=== PATIENT | male | born 1950 | race Caucasian/White ===

== ENCOUNTER 2016-06-22 09:37 | Emergency (ER) | payer MEDICARE, OTHER ==
[~2016-06-22] VITALS: Ht 175.3 cm; Wt 93.0 kg
[~2016-06-22 09:37] MED LIST: AMLO5TAB2 PO; ASPI81TA2 PO; ATOR40TA PO; CARV6.252 PO; LISI-603 PO
[2016-06-22] MEDS ORDERED: KETOROLAC TROMETHAMINE INJ 30 MG/ML VIAL ONE (10:24)
[2016-06-22] MEDS ORDERED: ACETAMINOPHEN 325 MG TABLET ONE (10:24)
[2016-06-22] MEDS ORDERED: KETOROLAC TROMETHAMINE INJ 30 MG/ML VIAL IM ONE (10:30)
[2016-06-22] MEDS ORDERED: ACETAMINOPHEN 325 MG TABLET PO ONE (10:30)
[2016-06-22 11:29] VITALS: BP 124/80
== END 2016-06-22 11:32 | disposition home or self-care (01) ==
LOC: ER 09:40
DX: S20.211A Contusion of right front wall of thorax, initial encounter (principal); I10 Essential (primary) hypertension; M25.532 Pain in left wrist; R07.89 Other chest pain; G89.29 Other chronic pain; Z79.82 Long term (current) use of aspirin; Z85.828 Personal history of other malignant neoplasm of skin; W01.0XXA Fall on same level from slipping, tripping and stumbling without subsequent striking against object, initial encounter; Y92.89 Other specified places as the place of occurrence of the external cause; Y93.89 Activity, other specified; Y99.8 Other external cause status
CPT/HCPCS: 71020; 72040; 96372; 99284; A4606; J1885; Z7610

== ENCOUNTER 2016-11-15 10:10 | Emergency (ER) | payer BC, MEDICARE ==
[~2016-11-15] VITALS: Ht 175.3 cm; Wt 90.7 kg
[2016-11-15 10:19] VITALS: BP 151/69
--- NOTE | 2016-11-15 11:51 | NUR ---
PT TAKEN TO CT VIA WC
== END 2016-11-15 12:41 | disposition home or self-care (01) ==
LOC: ER 10:12
DX: S16.1XXA Strain of muscle, fascia and tendon at neck level, initial encounter (principal); I10 Essential (primary) hypertension; E78.5 Hyperlipidemia, unspecified; Z79.82 Long term (current) use of aspirin; V49.40XA Driver injured in collision with unspecified motor vehicles in traffic accident, initial encounter; Y93.89 Activity, other specified; Y92.413 State road as the place of occurrence of the external cause; Y99.8 Other external cause status
CPT/HCPCS: 70450; 71010; 72040; 93005; 99284; A4606; Z7610

== ENCOUNTER 2017-04-30 05:02 | Emergency (ER) | payer MEDICARE, BC ==
[~2017-04-30] VITALS: Ht 175.3 cm; Wt 68.0 kg
--- NOTE | 2017-04-30 05:15 | NUR ---
PT BIB SELF AMBULATORY TO ER BED 6, PT C/O GFL 6 HOURS AGO; PAIN IN THE RIGHT LOWER ARM. (-) LOC. PT VSS/RESP EVEN UNLABORED/NAD NOTED/DENIES N-V/SKIN WARM AND DRY/AOX4. NO BRUSING NOTED TO RIGHT ARM, MILD EDEMA NOTED.
--- NOTE | 2017-04-30 05:16 | NUR ---
XRAY AT BEDSIDE
[2017-04-30] MEDS ORDERED: IBUPROFEN 400 MG TABLET PO ONE (05:30)
[2017-04-30] MEDS ORDERED: IBUPROFEN 400 MG TABLET ONE (05:33)
--- NOTE | 2017-04-30 05:36 | NUR ---
PT STATES HE TOOK IBUPOFEN 1000MG PO AT 0330. MADE AWARE.
[2017-04-30 06:46] VITALS: BP 124/76
== END 2017-04-30 06:47 | disposition home or self-care (01) ==
LOC: ER 05:03
DX: M25.531 Pain in right wrist (principal); E78.5 Hyperlipidemia, unspecified; I10 Essential (primary) hypertension; Z79.82 Long term (current) use of aspirin; Z95.818 Presence of other cardiac implants and grafts; W18.30XA Fall on same level, unspecified, initial encounter; Y93.89 Activity, other specified; Y92.89 Other specified places as the place of occurrence of the external cause; Y99.8 Other external cause status
CPT/HCPCS: 29125; 73110; 99284; A4606; Z7610

== ENCOUNTER 2020-11-06 09:29 | Outpatient (CLI) | payer MEDICARE, BC ==
[~2020-11-06 09:29] MED LIST changes: +AMLO-212 PO; -AMLO5TAB2 PO; +ASPI-1169 PO; -ASPI81TA2 PO; -LISI-603 PO; +LISI20TA30 PO
[2020-11-06] MEDS ORDERED: LIDOCAINE 2% JEL 5 ML TUBE ONE (09:56)
== END 2020-11-06 23:59 | disposition home or self-care (01) ==
LOC: WOU 09:29
PROVIDERS: ATTEND Podiatrist Foot & Ankle Surgery
DX: T81.31XA Disruption of external operation (surgical) wound, not elsewhere classified, initial encounter (principal); Z85.828 Personal history of other malignant neoplasm of skin; I10 Essential (primary) hypertension; Z87.891 Personal history of nicotine dependence; Z79.82 Long term (current) use of aspirin
CPT/HCPCS: 11042; 87070; 87075; A6209

== ENCOUNTER 2020-11-10 08:15 | Outpatient (CLI) | payer MEDICARE, BC ==
[2020-11-10 10:06] LABS: BASOPHILS % (AUTO) 0.6 % (0.0-2.0); EOSINOPHILS % (AUTO) 2.4 % (0.0-6.0); HEMATOCRIT 37 % (39-51); HEMOGLOBIN 12.6 g/dL (13.5-17.5); LYMPHOCYTES # (AUTO) 1.5 /CMM (0.8-4.8); LYMPHOCYTES % (AUTO) 24.4 % (20.0-44.0); MEAN CORPUSCULAR HGB CONC 34 g/dl (31.0-36.0); MEAN CORPUSCULAR VOLUME 105 fL (80-96); MONOCYTES # (AUTO) 0.7 /CMM (0.1-1.30); MONOCYTES % (AUTO) 10.8 % (2.0-12.0); NEUTROPHILS # (AUTO) 3.9 /CMM (1.8-8.9); NEUTROPHILS % (AUTO) 61.8 % (43.0-81.0); PLATELET COUNT (AUTO) 172 /CMM (150-450); RED BLOOD CELL COUNT(AUTO) 3.49 MIL/uL (4.5-6.0); WHITE BLOOD COUNT (AUTO) 6.3 K/uL (4.3-11.0)
[2020-11-10 10:48] LABS: CALCIUM, SERUM 9.1 mg/dL (8.5-10.1); POTASSIUM 5.1 mmol/L (3.5-5.1)
== END 2020-11-10 23:59 | disposition home or self-care (01) ==
LOC: WOU 08:15
PROVIDERS: ATTEND Podiatrist Foot & Ankle Surgery
DX: T81.31XA Disruption of external operation (surgical) wound, not elsewhere classified, initial encounter (principal); Z85.828 Personal history of other malignant neoplasm of skin; R05 Cough; Z71.89 Other specified counseling; Z79.82 Long term (current) use of aspirin
CPT/HCPCS: 11042; 36415; 71046; 80048; 85025; 85730; 93005; A6207; A6209

== ENCOUNTER 2020-11-10 09:00 | Outpatient (CLI) | payer MEDICARE, BC | END 2020-11-10 23:59 | disposition home or self-care (01) | LOC: LAB 09:00 | PROVIDERS: ATTEND Podiatrist Foot & Ankle Surgery | DX: Z01.812 Encounter for preprocedural laboratory examination (principal); Z20.822 Contact with and (suspected) exposure to COVID-19; L97.312 Non-pressure chronic ulcer of right ankle with fat layer exposed | CPT/HCPCS: C9803; U0003 ==

== ENCOUNTER → 2020-11-13 | Day surgery (SDC) | payer MEDICARE, BC ==
[~2020-11-13] MED LIST changes: +ANESTHESIA TRAY IN PYXIS 1 EA TRAY MC ONE; +BACITRACIN 50000 UNITS/VIAL ONE; +BUPIVACAINE 0.5 % PF 150 MG/30 ML VIAL ONE; +FENTANYL PF 100MCG/2ML AMPUL ONE; +LIDOCAINE HCL/MPF 1% 30 ML VIAL IJ ONE; +MINERAL OIL 10 ML VIAL MC ONE; +VANCOMYCIN 1 GM VIAL ONE
--- NOTE | 2020-11-13 07:00 | NUR ---
MS RN NOTES PATIENT READY FOR DAY SURGERY AND TAKEN TO OR
--- NOTE | 2020-11-13 12:35 | NUR ---
MS DIRECTOR OF UNDERGRADUATE ADMISSIONS NOTES PATIENT DISCHARGED HOME IN MEDICALLY STABLE CONDITION PER MD ORDER. PATIENT A/O X4 AND ABLE TO MAKE NEEDS KNOWN. ALL DISCHARGE DOCUMENTATION READY AND TEACHING PROVIDED; PATIENT VERBALIZED UNDERSTANDING. BELONGINGS CHECKED AND FORM SIGNED. MEDICATION PRESCRIPTION READY AND PICKED UP BY PATIENTS . PATIENT LEFT THE UNIT VIA WHEELCHAIR ACCOMPANIED BY THE STAVE CUTTING SUPERVISOR AND HIS AT 1215
== END | disposition home or self-care (01) ==
LOC: DS 06:06
PROVIDERS: ATTEND Podiatrist Foot & Ankle Surgery
DX: M25.571 Pain in right ankle and joints of right foot (principal); T81.30XA Disruption of wound, unspecified, initial encounter; T81.31XA Disruption of external operation (surgical) wound, not elsewhere classified, initial encounter; T81.89XA Other complications of procedures, not elsewhere classified, initial encounter
CPT/HCPCS: 15004; 15120; 87070 ×2; A6209; J0690; J1100; J2405; J2704; J3010; J3490 ×3; 88305-TC; J3370

== ENCOUNTER 2020-11-17 09:00 | Outpatient (CLI) | payer MEDICARE, BC ==
[~2020-11-17 09:00] MED LIST changes: -ANESTHESIA TRAY IN PYXIS 1 EA TRAY MC ONE; -BACITRACIN 50000 UNITS/VIAL ONE; -BUPIVACAINE 0.5 % PF 150 MG/30 ML VIAL ONE; -FENTANYL PF 100MCG/2ML AMPUL ONE; -LIDOCAINE HCL/MPF 1% 30 ML VIAL IJ ONE; -MINERAL OIL 10 ML VIAL MC ONE; -VANCOMYCIN 1 GM VIAL ONE
== END 2020-11-17 23:59 | disposition home health service (06) ==
LOC: WOU 09:00
PROVIDERS: ATTEND Podiatrist Foot & Ankle Surgery
DX: Z48.817 Encounter for surgical aftercare following surgery on the skin and subcutaneous tissue (principal); T81.89XA Other complications of procedures, not elsewhere classified, initial encounter; Z94.5 Skin transplant status; Z85.828 Personal history of other malignant neoplasm of skin; Z79.82 Long term (current) use of aspirin
CPT/HCPCS: 29581; A6207; G0463

== ENCOUNTER → 2020-11-20 | Outpatient (CLI) | payer MEDICARE, BC | END | disposition home health service (06) | LOC: WOU 09:00 | PROVIDERS: ATTEND Podiatrist Foot & Ankle Surgery | DX: Z48.817 Encounter for surgical aftercare following surgery on the skin and subcutaneous tissue (principal); Z94.5 Skin transplant status; R60.0 Localized edema; I10 Essential (primary) hypertension; Z85.828 Personal history of other malignant neoplasm of skin; Z79.82 Long term (current) use of aspirin | CPT/HCPCS: 29581; A6207 ==

== ENCOUNTER 2020-11-27 09:15 | Outpatient (CLI) | payer MEDICARE, BC ==
[2020-11-27] MEDS ORDERED: UREA 10% -AHA 4% CREAM 57 GM TUBE ONE (10:02)
== END 2020-11-27 23:59 | disposition home health service (06) ==
LOC: WOU 09:15
PROVIDERS: ATTEND Podiatrist Foot & Ankle Surgery
DX: Z48.817 Encounter for surgical aftercare following surgery on the skin and subcutaneous tissue (principal); Z94.5 Skin transplant status; S81.801D Unspecified open wound, right lower leg, subsequent encounter; X58.XXXD Exposure to other specified factors, subsequent encounter; R60.0 Localized edema; I10 Essential (primary) hypertension; Z85.828 Personal history of other malignant neoplasm of skin; Z79.82 Long term (current) use of aspirin
CPT/HCPCS: A6207; G0463

== ENCOUNTER 2020-12-04 09:00 | Outpatient (CLI) | payer MEDICARE, BC | END 2020-12-04 23:59 | disposition home or self-care (01) | LOC: WOU 09:00 | PROVIDERS: ATTEND Podiatrist Foot & Ankle Surgery | DX: Z48.817 Encounter for surgical aftercare following surgery on the skin and subcutaneous tissue (principal); Z94.5 Skin transplant status; R60.0 Localized edema; Z85.828 Personal history of other malignant neoplasm of skin; Z79.82 Long term (current) use of aspirin | CPT/HCPCS: 29581; A6207 ==

== ENCOUNTER 2020-12-11 08:30 | Outpatient (CLI) | payer MEDICARE, BC ==
[2020-12-11] MEDS ORDERED: UREA 10% -AHA 4% CREAM 57 GM TUBE ONE (08:35)
== END 2020-12-11 23:59 | disposition home health service (06) ==
LOC: WOU 08:30
PROVIDERS: ATTEND Podiatrist Foot & Ankle Surgery
DX: R60.0 Localized edema (principal); Z85.828 Personal history of other malignant neoplasm of skin
CPT/HCPCS: G0463

== ENCOUNTER 2020-12-29 08:20 | Outpatient (CLI) | payer MEDICARE, BC | END 2020-12-29 23:59 | disposition home or self-care (01) | LOC: WOU 08:20 | PROVIDERS: ATTEND Podiatrist Foot & Ankle Surgery | DX: S81.801D Unspecified open wound, right lower leg, subsequent encounter (principal); X58.XXXD Exposure to other specified factors, subsequent encounter; R60.0 Localized edema; Z85.828 Personal history of other malignant neoplasm of skin; Z79.82 Long term (current) use of aspirin | CPT/HCPCS: G0463 ==

== ENCOUNTER 2021-01-22 08:10 | Outpatient (CLI) | payer MEDICARE, BC | END 2021-01-22 23:59 | disposition home or self-care (01) | LOC: WOU 08:10 | PROVIDERS: ATTEND Podiatrist Foot & Ankle Surgery | DX: M21.621 Bunionette of right foot (principal); R60.0 Localized edema; I10 Essential (primary) hypertension; Z85.828 Personal history of other malignant neoplasm of skin; Z79.82 Long term (current) use of aspirin | CPT/HCPCS: G0463 ==

== ENCOUNTER 2022-04-12 09:55 | Emergency (ER) | payer MEDICARE, BC ==
[~2022-04-12] VITALS: Ht 175.3 cm; Wt 83.9 kg
--- NOTE | 2022-04-12 10:03 | NUR ---
Received pt 72 yrs male walking in from home c/o pain on lt shouderno diformity tripe and fall yesterday pain on BOTH knee and lt
--- NOTE | 2022-04-12 10:30 | NUR ---
SEEN BY DR. SOTELO
--- NOTE | 2022-04-12 10:40 | NUR ---
X RAY DONE AT BED side
[2022-04-12] MEDS ORDERED: NAPR-1192 PO (11:51)
[2022-04-12 11:58] VITALS: BP 146/78
--- NOTE | 2022-04-12 11:58 | NUR ---
Patient discharged to home in stable condition. Written and verbal after care instructions given. Patient verbalizes understanding of instruction.
== END 2022-04-12 12:02 | disposition home or self-care (01) ==
LOC: ER 09:57
DX: M25.512 Pain in left shoulder (principal); M25.531 Pain in right wrist; M25.532 Pain in left wrist; I10 Essential (primary) hypertension; E78.5 Hyperlipidemia, unspecified; Z60.2 Problems related to living alone; Z79.899 Other long term (current) drug therapy
CPT/HCPCS: 73030-TC; 73110

== ENCOUNTER 2022-05-23 06:21 | Inpatient (IN) | payer MEDICARE, BC ==
[~2022-05-23] VITALS: Ht 175.3 cm; Wt 85.7 kg
[~2022-05-23 06:21] MED LIST changes: +NAPR-1192 PO
--- NOTE | 2022-05-23 06:25 | NUR ---
TO ER BED 3. [id number] FROM HOME C/O WEAKNESS AND GLF. DENIES HEAD TRAUMA. -KO. PT IS ALERT AND ORIENTED. RR EVEN AND NONLABORED. CONNECTED TO POX AND HEART MONITOR. AWAITING MD HWANG
--- NOTE | 2022-05-23 06:45 | NUR ---
PT UNABLE TO PROVIDE URINE AT THIS TIME , URINAL PROVIDED AT BEDSIDE
--- NOTE | 2022-05-23 07:15 | NUR ---
RECEIVED PT FROM NELIA HOLLIS PT AWAKE AND FALLOW COMMAND GENRALIZED WEEKNESS
--- NOTE | 2022-05-23 07:21 | NUR ---
LAB AT BEDSIDE
[2022-05-23 07:45] LABS: ACETAMINOPHEN < 10 ug/ml (10-30); ALANINE AMINOTRANSFERASE 27 U/L (12-78); ALCOHOL, BLOOD < 3 mg/dL (0-0); ALKALINE PHOSPHATASE 72 U/L (46-116); ASPARTATE AMINOTRANSFERASE 23 U/L (15-37); BILIRUBIN,DIRECT 0.1 mg/dL (0.0-0.2); BILIRUBIN,TOTAL 0.2 mg/dL (0.2-1.0); CALCIUM, SERUM 9.4 mg/dL (8.5-10.1); CARBON DIOXIDE 26 mmol/L (21-32); CHLORIDE 102 mmol/L (98-107); CREATININE 1.1 mg/dL (0.6-1.3); GLUCOSE 103 mg/dL (74-106); POTASSIUM 4.1 mmol/L (3.5-5.1); SODIUM SERUM 137 mmol/L (136-145); TOTAL PROTEIN, SERUM 8.2 g/dL (6.4-8.2); UREA NITROGEN, BLOOD 16 mg/dL (7-18)
[2022-05-23 07:55] LABS: HEMOGLOBIN 11.1 g/dL (13.5-17.5); MONOCYTES # (AUTO) 0.5 K/uL (0.1-1.30); RED BLOOD CELL COUNT(AUTO) 3.74 MIL/uL (4.5-6.0)
--- NOTE | 2022-05-23 07:55 | NUR ---
UA SENT TO LAB
[2022-05-23 08:00] LABS: BASOPHILS % (AUTO) 0.8 % (0.0-2.0); EOSINOPHILS % (AUTO) 0.8 % (0.0-6.0); HEMATOCRIT 34 % (39-51); LYMPHOCYTES # (AUTO) 1.1 K/uL (0.8-4.8); LYMPHOCYTES % (AUTO) 26.4 % (20.0-44.0); MEAN CORPUSCULAR HGB CONC 33 g/dl (31.0-36.0); MEAN CORPUSCULAR VOLUME 91 fL (80-96); MONOCYTES % (AUTO) 10.7 % (2.0-12.0); NEUTROPHILS # (AUTO) 2.6 K/uL (1.8-8.9); NEUTROPHILS % (AUTO) 61.3 % (43.0-81.0); PLATELET COUNT (AUTO) 115 K/uL (150-450); WHITE BLOOD COUNT (AUTO) 4.3 K/uL (4.3-11.0)
[2022-05-23 09:21] LABS: BILIRUBIN,URINE NEGATIVE (NEGATIVE); COLOR,URINE YELLOW (YELLOW); LEUKOCYTE ESTERASE ,URINE NEGATIVE (NEGATIVE); NITRITE, URINE NEGATIVE (NEGATIVE); PROTEIN,URINE NEGATIVE (NEGATIVE); UGLUCOSE NEGATIVE (NEGATIVE); UROBILINOGEN,URINE 0.2 EU/dL (0.2)
--- NOTE | 2022-05-23 10:12 | NUR ---
COVID SWAB COLLECTED AND SENT TO LAB
[2022-05-23] MEDS ORDERED: TIZA-180 PO (10:30)
[2022-05-23] MEDS ORDERED: LORA-259 PO (10:30)
[2022-05-23] MEDS ORDERED: EZET10TA32 PO (10:30)
[2022-05-23] MEDS ORDERED: HYDR-3980 PO (10:31)
[2022-05-23] MEDS ORDERED: MAGNESIUM HYDROXIDE 30 ML UDC PO PRN (11:00)
[2022-05-23] MEDS ORDERED: ONDANSETRON HCL/PF 4 MG/2 ML VIAL IVP PRN (11:00)
[2022-05-23] MEDS ORDERED: IV NS 0.9% 1,000 ML IV PRN (11:00)
[2022-05-23] MEDS ORDERED: MAG HYDROX/AL HYDROX/SIMETH 30 ML UDC PO PRN (11:00)
[2022-05-23] MEDS ORDERED: Z GUARD REMEDY 4 OZ OINT TP PRN (11:00)
[2022-05-23] MEDS ORDERED: ACETAMINOPHEN 325 MG TABLET PO PRN (11:00)
[2022-05-23] MEDS: ENOXAPARIN SODIUM 40 MG/0.4 ML DISP.SYRIN SQ SCH (11:30)
[2022-05-23] MEDS ORDERED: ACETAMINOPHEN 325 MG TABLET ONE (12:39)
--- NOTE | 2022-05-23 13:00 | NUR ---
IV LINE ESTABLISHED ON LAC #20
--- NOTE | 2022-05-23 15:57 | NUR ---
INFORMED DR. GOMEZ THAT PT COMPLAINED OF BODY PAIN. PER DR GOMEZ OK FOR PT TO CONTINUE NORCO 10-325 MEDICATION INDICATED. ORDER READBACK AND VERIFIED W/ .
[2022-05-23] MEDS ORDERED: HYDROCODONE/APAP 10/325MG TABLET ONE (15:59)
[2022-05-23] MEDS: HYDROCODONE/APAP 10/325MG TABLET PO SCH (16:00)
--- NOTE | 2022-05-23 19:41 | NUR ---
ROOM 309-2
--- NOTE | 2022-05-23 20:24 | NUR ---
REPORT GIVENTO TELMA JEFF
--- NOTE | 2022-05-23 20:30 | NUR ---
BEAUTY ADVISORRIGHT OF WAY SUPERVISOR NOTE RECEIVED REPORT FROM ER NURSE EMANUEL. PT ADMITTED TO ROOM 309-2 WITH DIAGNOSIS OF FALLS. PT A/O X 3-4, ABLE TO MAKE NEEDS KNOWN. PT ABLE TO AMBULATE TO BATHROOM WITH ASSIST. NO C/O PAIN AT THIS TIME. NO SOB, OR RESPIRATORY DISTRESS. INSTRUCTED PT ON HOW TO USE CALL LIGHT. PT HAS IV ACCESS TO LEFT AC, AND IV INTACT, AND PATENT. SKIN ASSESSMENT COMPLETED. PT'S SKIN IS INTACT EXCEPT FOR DISCOLORATIONS TO BILATERAL ARMS, AND SCAB TO RIGHT LOWER EXTREMITY. WILL CONTINUE TO MONITOR ACCORDINGLY.
--- NOTE | 2022-05-23 20:40 | NUR ---
PT TRANSFERRED UNDER ACLS
[2022-05-23 22:00] VITALS: BP 135/89
[2022-05-23] MEDS ORDERED: ATORVASTATIN 40 MG TABLET PO SCH (22:00)
[2022-05-23] MEDS: CARVEDILOL 6.25 MG TABLET PO SCH (23:02)
[2022-05-24] VITALS: BP 165/85
[2022-05-24] MEDS ORDERED: TEMAZEPAM 7.5 MG CAPSULE PO PRN (02:00)
[2022-05-24 04:00] VITALS: BP 148/65
[2022-05-24] MEDS: HYDROCODONE/APAP 10/325MG TABLET PO SCH (05:27)
[2022-05-24 06:34] LABS: BASOPHILS % (AUTO) 0.3 % (0.0-2.0); EOSINOPHILS % (AUTO) 0.6 % (0.0-6.0); HEMATOCRIT 35 % (39-51); HEMOGLOBIN 11.3 g/dL (13.5-17.5); LYMPHOCYTES # (AUTO) 1.2 K/uL (0.8-4.8); LYMPHOCYTES % (AUTO) 21.4 % (20.0-44.0); MEAN CORPUSCULAR HGB CONC 33 g/dl (31.0-36.0); MEAN CORPUSCULAR VOLUME 90 fL (80-96); MONOCYTES # (AUTO) 0.7 K/uL (0.1-1.30); MONOCYTES % (AUTO) 11.8 % (2.0-12.0); NEUTROPHILS # (AUTO) 3.7 K/uL (1.8-8.9); NEUTROPHILS % (AUTO) 65.9 % (43.0-81.0); PLATELET COUNT (AUTO) 100 K/uL (150-450); RED BLOOD CELL COUNT(AUTO) 3.82 MIL/uL (4.5-6.0); WHITE BLOOD COUNT (AUTO) 5.6 K/uL (4.3-11.0)
[2022-05-24 07:09] LABS: CALCIUM, SERUM 9.4 mg/dL (8.5-10.1); CARBON DIOXIDE 25 mmol/L (21-32); CHLORIDE 102 mmol/L (98-107); CREATININE 1.1 mg/dL (0.6-1.3); GLUCOSE 110 mg/dL (74-106); PHOSPHORUS 3.4 mg/dL (2.5-4.9); POTASSIUM 3.7 mmol/L (3.5-5.1); SODIUM SERUM 138 mmol/L (136-145); UREA NITROGEN, BLOOD 14 mg/dL (7-18)
--- NOTE | 2022-05-24 07:10 | NUR ---
FOUNDRY PROCESS ENGINEER CLOSING NOTE LEFT PATIENT RESTING IN BED, AWAKE. PT A/O X3, ABLE TO MAKE NEEDS KNOWN. PT STABLE ON ROOM AIR. NO SOB OR RESPIRATORY DISTRESS NOTED. BREATHING EVEN AND UNLABORED. NO C/O PAIN AT THIS TIME. IV ACCESS TO LEFT FA 20G, INTACT AND PATENT. PT C/O GENERALIZED PAIN, AND INSOMNIA DURING SHIFT. PAIN MED GIVEN TO PT. MD CALLED, AND NEW ORDER RECEIVED FOR RESTORIL PRN. ORDER CARRIED OUT. SAFETY PRECAUTIONS IN PLACE. BED IN LOWEST LOCKED POSITION, HOB ELEVATED, SIDE RAILS UP X2, AND CALL LIGHT AND TABLE WITHIN REACH. WILL ENDORSE TO AM SHIFT NURSE FOR DONNIE.
--- NOTE | 2022-05-24 07:25 | NUR ---
SENIOR RESEARCH CONSULTANT OPENING NOTE RECEIVED PT AWAKE AND RESTING IN BED. PT A/O X3-4, ABLE TO MAKE NEEDS KNOWN. ON ROOM AIR, TOLERATING WELL. NO SOB NOTED. NOT IN ANY SIGN OF RESPIRATORY DISTRESS. ON TELE ARMED SECURITY GUARD WITH CURRENT READING OF SINUS RHYTHM WITH BBB, HR 85. NO C/O CARDIAC DISTRESS VOICED OUT AT THIS TIME. IV ACCESS IN LAC G#20, INTACT AND PATENT. PT REFUSED IV FLUIDS AT THIS TIME. AWARE. SAFETY MEASURES IN PLACE: BED IN LOWEST AND LOCKED POSITION, SIDE RAILS UPX2, BED ALARM ON, AND CALL LIGHT WITHIN REACH. WILL CONTINUE TO MONITOR PT.
[2022-05-24 08:00] VITALS: BP 153/87
[2022-05-24] MEDS: CARVEDILOL 6.25 MG TABLET PO SCH (08:56)
[2022-05-24] MEDS ORDERED: ASPIRIN 81 MG TAB.CHEW PO SCH (09:00)
[2022-05-24] MEDS ORDERED: EZETIMIBE 10 MG TABLET PO SCH (09:00)
[2022-05-24] MEDS: ENOXAPARIN SODIUM 40 MG/0.4 ML DISP.SYRIN SQ SCH (11:00)
--- NOTE | 2022-05-24 11:55 | NUR ---
RN NOTE PT REFUSED LOVENOX MEDICATION SCHEDULED AT 1100. EXPLAINED RISK AND BENEFITS X3, STILL REFUSED.
[2022-05-24 12:00] VITALS: BP 156/87
--- NOTE | 2022-05-24 13:55 | NUR ---
TRACER LATHE SET UP OPERATOR NOTE PT DISCHARGED TO HOME IN STABLE CONDITION. PT A/O X3-4, ABLE TO MAKE NEEDS KNOWN. ON ROOM AIR, TOLERATING WELL WITH SPO2 AT 97%. NO SOB NOTED. NOT IN ANY SIGN OF RESPIRATORY DISTRESS. VITAL SIGNS TAKEN, STABLE, AND RECORDED. PT REFUSED BODY ASSESSMENTS AND PHOTOGRAPHS OF SKIN ISSUES. ALL BELONGINGS ACCOUNTED FOR. DISCHARGED INSTRUCTIONS AND HEALTH TEACHINGS EXPLAINED TO PT AND PT VERBALIZED UNDERSTANDING. LAC G#20 REMOVED WITH NO ACTIVE BLEEDING NOTED. DRY PRESSURE DRESSING APPLIED TO SITE. NAME BAND REMOVED. TELE MONITOR REMOVED AND TELE BOX GIVEN TO THE BEE RAISERBRANDI YU. PT'S TELE CARDIAC READING PRIOR TO REMOVAL WAS SINUS RHYTHM WITH BBB, HR 93. NO C/O CARDIAC DISTRESS VOICED OUT. PT LEFT THE UNIT AT 1345 VIA WHEELCHAIR, ACCOMPANIED BY IMMIGRATION MANAGER. PT WAS PICKED UP BY VIA PRIVATE CAR. MD AND CHARGED NURSE AWARE OF DISCHARGED.
== END 2022-05-24 13:30 | disposition home or self-care (01) | DRG 917 ==
LOC: ER 06:23 → MED 19:49 → TELE 21:12
PROVIDERS: ADMIT Internal Medicine; ATTEND Internal Medicine
DX: T50.901A Poisoning by unspecified drugs, medicaments and biological substances, accidental (unintentional), initial encounter (principal); G93.41 Metabolic encephalopathy; M79.10 Myalgia, unspecified site; Z20.822 Contact with and (suspected) exposure to COVID-19; W19.XXXA Unspecified fall, initial encounter; E78.5 Hyperlipidemia, unspecified; Z95.1 Presence of aortocoronary bypass graft; I25.10 Atherosclerotic heart disease of native coronary artery without angina pectoris; G89.29 Other chronic pain; Z79.82 Long term (current) use of aspirin; Z79.899 Other long term (current) drug therapy; D64.9 Anemia, unspecified; R29.6 Repeated falls; I10 Essential (primary) hypertension; J32.0 Chronic maxillary sinusitis; Y92.9 Unspecified place or not applicable
CPT/HCPCS: 36415; 70450-TC; 71045-TC; 80048-TC; 80076-TC; 83735-TC; 84100-TC; 85025-TC; 87081-TC; C9803; G0378; G0480

== ENCOUNTER 2023-10-28 08:02 | Inpatient (IN) | payer MEDICARE, BC ==
[~2023-10-28] VITALS: Ht 172.7 cm; Wt 90.5 kg
[~2023-10-28 08:02] MED LIST changes: -AMLO-212 PO; +EZET10TA32 PO; +HYDR-3980 PO; -LISI20TA30 PO; +LORA-259 PO; -NAPR-1192 PO; +TIZA-180 PO
[2023-10-28 08:35] LABS: BASOPHILS % (AUTO) 0.6 % (0.0-2.0); EOSINOPHILS # (AUTO) 0.1 K/uL (0.0-0.7); EOSINOPHILS % (AUTO) 1.7 % (0.0-6.0); HEMATOCRIT 35 % (39-51); LYMPHOCYTES # (AUTO) 1.7 K/uL (0.8-4.8); LYMPHOCYTES % (AUTO) 24.6 % (20.0-44.0); MEAN CORPUSCULAR HEMOGLOBIN 34 PG (26.0-33.0); MEAN CORPUSCULAR HGB CONC 34 g/dl (31.0-36.0); MEAN CORPUSCULAR VOLUME 99 fL (80-96); MONOCYTES # (AUTO) 0.8 K/uL (0.1-1.30); NEUTROPHILS # (AUTO) 4.1 K/uL (1.8-8.9); NEUTROPHILS % (AUTO) 61.1 % (43.0-81.0); PLATELET COUNT (AUTO) 115 K/uL (150-450); RED BLOOD CELL COUNT(AUTO) 3.54 MIL/uL (4.5-6.0); RED CELL DISTRIBUTION WIDTH 14.5 % (11.5-15.0); WHITE BLOOD COUNT (AUTO) 6.8 K/uL (4.3-11.0)
[2023-10-28 08:47] LABS: CALCIUM, SERUM 9.2 mg/dL (8.5-10.1); CARBON DIOXIDE 23 mmol/L (21-32); CHLORIDE 103 mmol/L (98-107); CREATININE 1.3 mg/dL (0.6-1.3); GLUCOSE 86 mg/dL (74-106); POTASSIUM 4.2 mmol/L (3.5-5.1); SODIUM SERUM 136 mmol/L (136-145); UREA NITROGEN, BLOOD 17 mg/dL (7-18)
[2023-10-28] MEDS ORDERED: ASPI-992 PO (08:49)
[2023-10-28] MEDS: MORPHINE SULFATE INJ 2 MG/ML DISP.SYRIN IV ONE (09:30)
[2023-10-28] MEDS: ONDANSETRON HCL/PF 4 MG/2 ML VIAL IVP ONE (09:30)
[2023-10-28] MEDS ORDERED: SUMATRIPTAN SUCCINATE 6 MG/0.5 ML VIAL SQ ONE ×2 (10:00)
[2023-10-28] MEDS ORDERED: ONDANSETRON HCL/PF 4 MG/2 ML VIAL ONE (10:22)
[2023-10-28] MEDS ORDERED: MORPHINE SULFATE INJ 4 MG/ML DISP.SYRIN ONE (10:22)
[2023-10-28] MEDS ORDERED: ONDANSETRON HCL/PF 4 MG/2 ML VIAL IVP PRN (11:00)
[2023-10-28] MEDS: ENOXAPARIN SODIUM 40 MG/0.4 ML DISP.SYRIN SQ SCH (11:00)
[2023-10-28] MEDS ORDERED: NITROGLYCERIN 0.4 MG/TAB BOTTLE SL PRN (11:00)
[2023-10-28] MEDS ORDERED: Z GUARD REMEDY 4 OZ OINT TP PRN (11:00)
[2023-10-28] MEDS ORDERED: ACETAMINOPHEN 325 MG TABLET PO PRN (11:00)
[2023-10-28] MEDS ORDERED: MAGNESIUM HYDROXIDE 30 ML UDC PO PRN (11:00)
[2023-10-28] MEDS: EZETIMIBE 10 MG TABLET PO SCH (11:20)
[2023-10-28] MEDS: CARVEDILOL 6.25 MG TABLET PO SCH (11:20)
[2023-10-28] MEDS: ASPIRIN 325 MG TABLET PO SCH (11:20)
[2023-10-28 11:30] VITALS: BP 146/117; TEMP 97.9; O2SAT 99
[2023-10-28] MEDS: METOCLOPRAMIDE HCL 10 MG/2 ML VIAL IV ONE (12:04)
[2023-10-28] MEDS: diphenhydrAMINE HCL 50 MG/ML VIAL IV ONE (12:04)
[2023-10-28 16:00] VITALS: BP 143/66; TEMP 98.1; O2SAT 98
[2023-10-28] MEDS: MORPHINE SULFATE INJ 2 MG/ML DISP.SYRIN IV PRN (17:57)
[2023-10-28 20:00] VITALS: BP 152/76; TEMP 98.2; O2SAT 96
[2023-10-28] MEDS: ATORVASTATIN 40 MG TABLET PO SCH (22:51)
[2023-10-29] VITALS: BP 168/78; TEMP 98.6; O2SAT 98
[2023-10-29 07:30] VITALS: BP 149/81; TEMP 97.7; O2SAT 97
[2023-10-29 07:36] LABS: BASOPHILS % (AUTO) 0.7 % (0.0-2.0); EOSINOPHILS # (AUTO) 0.1 K/uL (0.0-0.7); EOSINOPHILS % (AUTO) 1.9 % (0.0-6.0); HEMATOCRIT 33 % (39-51); HEMOGLOBIN 11.6 g/dL (13.5-17.5); LYMPHOCYTES # (AUTO) 1.8 K/uL (0.8-4.8); LYMPHOCYTES % (AUTO) 27.6 % (20.0-44.0); MEAN CORPUSCULAR HEMOGLOBIN 34 PG (26.0-33.0); MEAN CORPUSCULAR HGB CONC 35 g/dl (31.0-36.0); MEAN CORPUSCULAR VOLUME 99 fL (80-96); MONOCYTES # (AUTO) 0.8 K/uL (0.1-1.30); NEUTROPHILS # (AUTO) 3.7 K/uL (1.8-8.9); NEUTROPHILS % (AUTO) 57.8 % (43.0-81.0); PLATELET COUNT (AUTO) 112 K/uL (150-450); RED BLOOD CELL COUNT(AUTO) 3.38 MIL/uL (4.5-6.0); RED CELL DISTRIBUTION WIDTH 14.5 % (11.5-15.0); WHITE BLOOD COUNT (AUTO) 6.4 K/uL (4.3-11.0)
[2023-10-29] MEDS: PANTOPRAZOLE 40 MG TABLET.DR PO SCH (07:49)
[2023-10-29 07:58] LABS: CALCIUM, SERUM 8.6 mg/dL (8.5-10.1); CARBON DIOXIDE 25 mmol/L (21-32); CHLORIDE 101 mmol/L (98-107); CREATININE 1.2 mg/dL (0.6-1.3); GLUCOSE 104 mg/dL (74-106); MAGNESIUM 2.3 mg/dL (1.8-2.4); PHOSPHORUS 3.9 mg/dL (2.5-4.9); POTASSIUM 4.3 mmol/L (3.5-5.1); SODIUM SERUM 133 mmol/L (136-145); UREA NITROGEN, BLOOD 13 mg/dL (7-18)
[2023-10-29 08:04] LABS: CHOLESTEROL 103 mg/dL (<200); HDL CHOLESTEROL 46 mg/dL (40-60); LDL 46 mg/dL (0-99); TRIGLYCERIDES 107 mg/dL (30-150)
[2023-10-29 08:17] VITALS: BP 149/81
== END 2023-10-29 10:00 | disposition home or self-care (01) | DRG 303 ==
LOC: ER 08:05 → TELE 10:11
PROVIDERS: ADMIT Nurse Practitioner Family; ATTEND Nurse Practitioner Family
DX: I25.118 Atherosclerotic heart disease of native coronary artery with other forms of angina pectoris (principal); I11.0 Hypertensive heart disease with heart failure; Z95.5 Presence of coronary angioplasty implant and graft; E78.5 Hyperlipidemia, unspecified; Z87.81 Personal history of (healed) traumatic fracture; Z79.899 Other long term (current) drug therapy; Z95.1 Presence of aortocoronary bypass graft; I25.10 Atherosclerotic heart disease of native coronary artery without angina pectoris; M19.90 Unspecified osteoarthritis, unspecified site; D69.6 Thrombocytopenia, unspecified; D64.9 Anemia, unspecified; Z79.82 Long term (current) use of aspirin; Z87.891 Personal history of nicotine dependence
CPT/HCPCS: 36415; 71045-TC; 80048-TC; 80061-TC; 83735-TC; 84100-TC; 84484-TC; 85025-TC; 93307-TC; G0378; J1200; J1650; J2270; J2405; J2765